=== PATIENT | female | born 1990 | race Two or more races ===

== ENCOUNTER 2024-10-25 20:00 | Emergency (ER) | payer SELFPAY ==
[~2024-10-25] VITALS: Ht 170.2 cm; Wt 62.1 kg
[2024-10-25 21:29] LABS: BASOPHILS % (AUTO) 0.5 % (0.0-2.0); EOSINOPHILS % (AUTO) 0.5 % (0.0-7.0); HEMOGLOBIN 12.7 g/dL (10.9-14.3); LYMPHOCYTES # (AUTO) 1.2 K/uL (0.8-4.8); LYMPHOCYTES % (AUTO) 15.1 % (20.5-51.5); MEAN CORPUSCULAR HEMOGLOBIN 29.4 uug (24.7-32.8); MEAN CORPUSCULAR HGB CONC 33 g/dL (32.3-35.6); MEAN CORPUSCULAR VOLUME 88.5 fL (75.5-95.3); MONOCYTES # (AUTO) 0.5 K/uL (0.1-1.30); MONOCYTES % (AUTO) 5.6 % (0.0-11.0); NEUTROPHILS # (AUTO) 6.4 K/uL (1.8-8.9); NEUTROPHILS % (AUTO) 78.3 % (38.5-71.5); PLATELET COUNT (AUTO) 288 K/uL (179-408); RED CELL DISTRIBUTION WIDTH 14.3 % (12.3-17.7); WHITE BLOOD COUNT (AUTO) 8.2 K/uL (3.8-11.8)
[2024-10-25 21:34] LABS: *BILIRUBIN,URIN NEGATIVE (NEGATIVE); *BLOOD, URINE 1+ (NEGATIVE); *CLARITY,URINE CLEAR (CLEAR); *COLOR,URINE YELLOW (YELLOW); *KETONES,URINE 1+ (NEGATIVE); *PROTEIN,URINE NEGATIVE (NEGATIVE); *UROBILINOGEN,URINE 0.2 E.U./dl (NORMAL); LEUKOCYTE ESTERASE ,URINE NEGATIVE (NEGATIVE); NITRITE, URINE NEGATIVE (NEGATIVE); PH,URINE 5.5 (5.0-8.0); UGLUCOSE NEGATIVE (NEGATIVE)
[2024-10-25 21:34] LABS: DIFFERENTIAL COMMENT 1
[2024-10-25 21:35] LABS: *URINE HCG, QUAL NEGATIVE (NEGATIVE)
[2024-10-25 21:38] LABS: CALCIUM 9.2 mg/dL (8.5-10.1); CARBON DIOXIDE 26 mmol/L (21-32); CHLORIDE 103 mmol/L (98-107); CREATININE 0.6 mg/dL (0.6-1.3); GLUCOSE 98 mg/dL (74-106); POTASSIUM 4.2 mmol/L (3.5-5.1); SODIUM SERUM 140 mmol/L (136-145); UREA NITROGEN, BLOOD 9 mg/dL (7-18)
[2024-10-25 21:42] LABS: ETHANOL < 3 MG/DL (0-10)
[2024-10-25 21:42] LABS: *AMPHETAMINE, URINE NEGATIVE (NEGATIVE); *BARBITURATE, URINE NEGATIVE (NEGATIVE); *BENZODIAZEPINE, URINE NEGATIVE (NEGATIVE); *CANNABINOID, URINE NEGATIVE (NEGATIVE); *COCCAINE, URINE NEGATIVE (NEGATIVE); *OPIATE, URINE NEGATIVE (NEGATIVE); *PHENCYCLIDINE SCREEN,URINE NEGATIVE (NEGATIVE); FENTANYL, URINE NEGATIVE (NEGATIVE)
[2024-10-25 21:50] LABS: ALANINE AMINOTRANSFERASE 23 U/L (14-59); ALBUMIN 4.3 g/dL (3.4-5.0); ALKALINE PHOSPHATASE 60 U/L (50-136); ASPARTATE AMINOTRANSFERASE 18 U/L (15-37); BILIRUBIN,TOTAL 0.4 mg/dL (0.2-1.0); NT-PRO BNP 30 pg/mL (0-125); TOTAL PROTEIN, SERUM 7.7 g/dL (6.4-8.2)
[2024-10-25 22:58] LABS: BACTERIA,URINE FEW /HPF (NONE SEEN); SQUAMOUS EPITHELIAL CELL,UR FEW /HPF (NONE SEEN); WBC,URINE 0-3 /HPF (0-3)
[2024-10-26] MEDS ORDERED: LORAZEPAM 2 MG/1 ML VIAL ONE (00:17)
[2024-10-26] MEDS ORDERED: METO-356 PO (00:20)
[2024-10-26] MEDS: LORAZEPAM 2 MG/1 ML VIAL IV ONE (00:25)
[2024-10-26 00:35] VITALS: BP 117/84; O2SAT 95
== END 2024-10-26 00:35 | disposition home or self-care (01) ==
LOC: ER 20:12
DX: R07.9 Chest pain, unspecified (principal); R00.0 Tachycardia, unspecified; R06.02 Shortness of breath; Z79.899 Other long term (current) drug therapy
CPT/HCPCS: 80053; 81001; 84703; 83880; 85025; 84484; 36415 ×2; 71045; 93005; 99285; 80320; 80307; 85379; 96372; J2060; A4606; A4663; G0480